=== PATIENT | female | born 1995 | race Hispanic/Latino ===

== ENCOUNTER 2018-08-09 22:30 | Emergency (ER) | payer SELFPAY ==
[2018-08-09 22:40] VITALS: BMI 24.9
[2018-08-09] MEDS ORDERED: Sodium Chloride 0.9% 1,000 ML IV STA (22:53)
[2018-08-09 23:01] VITALS: TEMP 97.9
--- NOTE | 2018-08-09 23:04 | ED PDOC ---
Arrival/HPI - General Historian: Patient - History of Present Illness Narrative History of Present Illness (Text): 08/09/18 22:57 22-year-old female presents today with anxiety and palpitations worsening over the past 4 days. Patient he denies fevers or chills. Patient denies dizziness or weakness. Patient states she's been feeling palpitations like her heart is racing. She states it's making her feel anxious.patient states she's been feeling slightly short of breath. She denies nausea vomiting diarrhea or constipation. Patient states she did just quit smoking over a week ago and she wonders if symptoms are related. She states she's had a stuffy nose for a few days denies fevers or chills. Denies any calf pain. Denies taking any control pills. Patient denies any long car ride or plane flight. No other complaints no medications have been taken at home. <Dawn Cabral - Last Filed: 08/10/18 01:31> <Dung Antonio - Last Filed: 08/10/18 02:50> - General Chief Complaint: Anxiety Time Seen by Provider: 08/09/18 22:31 Past Medical History - Provider Review Nursing Documentation Reviewed: Yes - Infectious Disease Hx of Infectious Diseases: None - Tetanus Immunization Tetanus Immunization: Unknown - Past Medical History Past Medical History: No Previous - Cardiac Hx Cardiac Disorders: No - Pulmonary Hx Respiratory Disorders: No - Neurological Hx Neurological Disorder: No - HEENT Hx HEENT Disorder: No - Renal Hx Renal Disorder: No - Endocrine/Metabolic Hx Endocrine Disorders: No - Hematological/Oncological Hx Blood Disorders: No - Integumentary Hx Dermatological Disorder: No - Musculoskeletal/Rheumatological Hx Musculoskeletal Disorders: No - Gastrointestinal Hx Gastrointestinal Disorders: No - Genitourinary/Gynecological Hx Genitourinary Disorders: No - Psychiatric Hx Psychophysiologic Disorder: Yes Hx Anxiety: Yes Hx Substance Use: No - Past Surgical History Past Surgical History: No Previous - Anesthesia Hx Anesthesia: No - Suicidal Assessment Feels Threatened In Home Enviroment: No <Dawn Cabral - Last Filed: 08/10/18 01:31> Family/Social History - Physician Review Nursing Documentation Reviewed: Yes Family/Social History: Unknown Family HX Smoking Status: Heavy Smoker > 10 Cigarettes Daily Hx Alcohol Use: No Hx Substance Use: No <Dawn Cabral - Last Filed: 08/10/18 01:31> Allergies/Home Meds <Dawn Cabral - Last Filed: 08/10/18 01:31> <Dung Antonio - Last Filed: 08/10/18 02:50> Allergies/Adverse Reactions: Allergies No Known Allergies Allergy (Verified 08/09/18 22:51) Review of Systems - Review of Systems Constitutional: absent: Fatigue, Fevers ENT: Sinus Congestion. absent: Sore Throat Respiratory: SOB. absent: Cough Cardiovascular: Chest Pain, Palpitations Gastrointestinal: absent: Abdominal Pain, Nausea, Vomiting Musculoskeletal: absent: Arthralgias, Back Pain, Neck Pain, Joint Swelling Skin: absent: Rash, Pruritis Neurological: absent: Headache, Dizziness Psychiatric: absent: Anxiety, Depression <Dawn Cabral - Last Filed: 08/10/18 01:31> Physical Exam Vital Signs Reviewed: Yes Vital Signs Temp Pulse Resp BP Pulse Ox 08/09/18 22:43 97.9 F 136 H 22 142/81 100 Temperature: Afebrile Blood Pressure: Normal Pulse: Tachycardic Respiratory Rate: Normal Appearance: Positive for: Well-Appearing, Non-Toxic, Comfortable Pain Distress: None Mental Status: Positive for: Alert and Oriented X 3 - Systems Exam Head: Present: Atraumatic Conjunctiva: Present: Normal Mouth: Present: Moist Mucous Membranes Pharnyx: Present: Normal Nose (External): Present: Atraumatic Nose (Internal): Present: Normal Inspection Neck: Present: Normal Range of Motion Respiratory/Chest: Present: Clear to Auscultation, Good Air Exchange. No: Respiratory Distress, Accessory Muscle Use Cardiovascular: Present: Tachycardic. No: Murmurs Abdomen: No: Tenderness, Rebound, Guarding Back: Present: Normal Inspection Upper Extremity: Present: Normal ROM Lower Extremity: Present: Normal ROM. No: CALF TENDERNESS Neurological: Present: GCS=15, Speech Normal Skin: Present: Warm, Dry, Normal Color. No: Rashes Psychiatric: Present: Alert, Oriented x 3 <Dawn Cabral - Last Filed: 08/10/18 01:31> Vital Signs Temp Pulse Resp BP Pulse Ox 08/09/18 22:43 97.9 F 136 H 22 142/81 100 <Dung Antonio - Last Filed: 08/10/18 02:50> Medical Decision Making ED Course and Treatment: 08/09/18 23:00 pt with chest pain ; patient tachycardic complaining of anxiety chest pain and tightness. cbc; wnl cmp; K: 3.2 trop: Wnl dimer: 386 rapid flu negative ekg; EKG shows sinus tachycardia at 131 bpm normal axis no ST elevations pt given NS IV bolus; pt feeling better. after medications; pt with elevated D-dimer; with tachycardia; will do ct of chest to r/o PE. pt reassessment; resting comfortably; still tachycardic in the 120s; 2nd liter NS iv bolus. 08/10/18 01:28 case signed out to dr. antonio pending CT results. - RAD Interpretation Radiology Orders: 08/09/18 22:53 CHEST PORTABLE [RAD] Stat - Medication Orders Current Medication Orders: Sodium Chloride (Sodium Chloride 0.9%) 1,000 mls @ 999 mls/hr IV .Q1H1M STA Stop: 08/09/18 23:53 <Dawn Cabral - Last Filed: 08/10/18 01:31> ED Course and Treatment: 08/10/18 02:17 CTA Chest: Normal enhancement of the main pulmonary artery and right and left pulmonary arteries. Normal enhancement of the bilateral peripheral pulmonary arteries. There is no demonstrated pulmonary embolism. Normal thoracic aorta and visualized great vessels. There is no demonstrated aortic dissection. Normal heart and pericardium. Normal mediastinum. Normal hilar regions. Normal visualized trachea and bronchi. The lungs are well expanded. Normal pulmonary parenchyma. Normal pleura. Normal chest wall structures. Normal osseous structures. Mild splenomegaly. IMPRESSION: No demonstrated pulmonary embolism or arterial dissection. Mild splenomegaly. Electronically signed on Aug 10, 2018 2:06:14 AM EST by: Daniel Zimmer M.D., Certified by ABR, MSK, Neuroradiology - Lab Interpretations Lab Results: Troponin I < 0.01 ng/mL 08/09/18 23:15 Total Bilirubin 0.4 mg/dL (0.2-1.3) 08/09/18 23:15 AST 33 U/L (14-36) 08/09/18 23:15 ALT 34 U/L (7-56) 08/09/18 23:15 Alkaline Phosphatase 71 U/L (38-126) 08/09/18 23:15 Total Protein 8.5 g/dL (5.8-8.3) H 08/09/18 23:15 Albumin 5.1 g/dL (3.0-4.8) H 08/09/18 23:15 Globulin 3.4 gm/dL 08/09/18 23:15 Albumin/Globulin Ratio 1.5 (1.1-1.8) 08/09/18 23:15 Urine Color Yellow (YELLOW) 08/09/18 23:15 Urine Appearance Clear (CLEAR) 08/09/18 23:15 Urine pH 6.0 (4.7-8.0) 08/09/18 23:15 Ur Specific [place] 1.025 (1.005-1.035) 08/09/18 23:15 Urine Protein Negative mg/dL (<30 mg/dL) 08/09/18 23:15 Urine Glucose (UA) Negative mg/dL (NEGATIVE) 08/09/18 23:15 Urine Ketones Negative mg/dL (NEGATIVE) 08/09/18 23:15 Urine Blood Negative (NEGATIVE) 08/09/18 23:15 Urine Nitrate Negative (NEGATIVE) 08/09/18 23:15 Urine Bilirubin Negative (NEGATIVE) 08/09/18 23:15 Urine Urobilinogen 0.2 E.U./dL (<1 E.U./dL) 08/09/18 23:15 Ur Leukocyte Esterase Negative Maci/uL (NEGATIVE) 08/09/18 23:15 - RAD Interpretation Radiology Orders: 08/09/18 22:53 CHEST PORTABLE [RAD] Stat - Medication Orders Current Medication Orders: Discontinued Medications Sodium Chloride (Sodium Chloride 0.9%) 1,000 mls @ 999 mls/hr IV .Q1H1M STA Stop: 08/09/18 23:53 <Dung Antonio - Last Filed: 08/10/18 02:50> - PA / GUM ROLLING MACHINE OPERATOR / Resident Statement COLBY has reviewed & agrees with the documentation as recorded. COLBY has examined the patient and agrees with the treatment plan. <Dung Antonio - Last Filed: 08/10/18 02:50> Disposition/Present on Arrival - Present on Arrival Any Indicators Present on Arrival: No History of DVT/PE: No History of Uncontrolled Diabetes: No Urinary Catheter: No History of Decub. Ulcer: No History Surgical Site Infection Following: None <Dawn Cabral - Last Filed: 08/10/18 01:31> - Present on Arrival Any Indicators Present on Arrival: No - Disposition Have Diagnosis and Disposition been Completed?: Yes Disposition Time: 02:48 Patient Plan: Discharge <JillianDung miles - Last Filed: 08/10/18 02:50> - Disposition Diagnosis: Anxiety Disposition: HOME/ ROUTINE Condition: GOOD Discharge Instructions (ExitCare): Anxiety, Adult (DC) Additional Instructions: Take meds as prescribed/follow up with your doctor this week Prescriptions: hydrOXYzine HCl [Atarax] 25 mg PO Q8H PRN #15 tab PRN Reason: Anxiety Referrals: FAMILY PROVIDER,NO [Primary Care Provider] - Follow up with primary [facility] [place] [Outside] - Follow up with primary [facility] [Outside] - Follow up with primary Selina Han MD [Medical Doctor] - Follow up with primary Forms: [employer] (Cymraes)
[2018-08-09 23:32] LABS: BASO # 0.01 K/mm3 (0.0-2.0); BASO % 0.1 % (0.0-3.0); EOS # 0.2 (0.0-0.7); EOS % 1.7 % (1.5-5.0); GRAN # 5.91 (1.4-6.5); GRAN % 57.3 % (50.0-68.0); HEMOGLOBIN 14.5 g/dL (12.0-16.0); LYMPH # 3.5 (1.2-3.4); LYMPH % 33.6 % (22.0-35.0); MEAN CELL VOLUME 87.9 fl (80.0-105.0); MEAN CORPUSCULAR HEMOGLOBIN 30.9 pg (25.0-35.0); MEAN CORPUSCULAR HGB CONC 35.1 g/dl (31.0-37.0); MEAN PLATELET VOLUME 10.9 fl (7.0-11.0); MONO # 0.8 (0.1-0.6); MONO % 7.3 % (1.0-6.0); RBC 4.7 10^6/uL (3.5-6.1); RED CELL DISTRIBUTION WIDTH 12.1 % (11.5-14.5); WHITE BLOOD COUNT 10.3 10^3/uL (4.5-11.0)
[2018-08-09 23:35] LABS: URINE BILIRUBIN NEGATIVE (NEGATIVE); URINE BLOOD NEGATIVE (NEGATIVE); URINE GLUCOSE (UA) NEGATIVE (NEGATIVE); URINE LEUKOCYTE ESTERASE NEGATIVE Leu/uL (NEGATIVE); URINE PROTEIN NEGATIVE mg/dL (<30 mg/dL); URINE UROBILINOGEN 0.2 E.U./dL (<1 E.U./dL)
[2018-08-09 23:37] LABS: URINE APPEARANCE CLEAR (CLEAR); URINE COLOR YELLOW (YELLOW)
[2018-08-09 23:43] LABS: ALB/GLOB RATIO 1.5 (1.1-1.8); ALBUMIN 5.1 g/dL (3.0-4.8); ALT/SGPT 34 U/L (7-56); AST/SGOT 33 U/L (14-36); BLOOD UREA NITROGEN 16 mg/dL (7-21); CALCIUM 9.8 mg/dL (8.4-10.5); GFR NON-AFRICAN AMERICAN > 60
[2018-08-09 23:55] LABS: TROPONIN I < 0.01 ng/mL
[2018-08-10] MEDS ORDERED: Iohexol 350 MG/100 ML VIAL ONE (00:54)
[2018-08-10] MEDS ORDERED: Sodium Chloride 0.9% 1,000 ML IV STA (01:24)
[2018-08-10] MEDS ORDERED: Potassium Chloride 20 mEq ER Tab PO STA (01:30)
[2018-08-10 03:05] VITALS: BP 127/72; PULSE 110; RESP 16; O2SAT 99
--- NOTE | 2018-08-10 09:31 | CT ---
Date of service: 08/10/2018 PROCEDURE: CT Chest with contrast (Pulmonary Angiogram) HISTORY: chest pain/ shortness of breath, palpitations COMPARISON: None available. TECHNIQUE: Axial computed tomography images were obtained of the chest in the pulmonary arterial phase of enhancement. Coronal and sagittal reformatted images were created and reviewed. Intravenous contrast dose: 100 cc Omnipaque 350 Mean Hounsfield value in the main pulmonary artery: 246.25 Radiation dose: Total exam DLP = 232.70 mGy-cm. This CT exam was performed using one or more of the following dose reduction techniques: Automated exposure control, adjustment of the mA and/or kV according to patient size, and/or use of iterative reconstruction technique. FINDINGS: PULMONARY ARTERIES: Unremarkable. No pulmonary embolism. AORTA: No acute findings. No thoracic aortic aneurysm. No atherosclerotic calcification or mural plaque present. LUNGS: Unremarkable. No nodule, mass or pulmonary consolidation. PLEURAL SPACES: Unremarkable. No effusion or pneumothorax. HEART: Unremarkable. No cardiomegaly. No significant pericardial effusion. LYMPH NODES: No lymphadenopathy. BONES, CHEST WALL: Unremarkable. No fracture or destructive lesion OTHER FINDINGS: Azygos fissure common normal variant Incompletely visualized enlarged spleen. IMPRESSION: Unremarkable CT pulmonary angiogram. No pulmonary embolus. Additional benign and/or incidental findings described above. Concordant results (preliminary interpretation) provided by Igea. Procedure Completed: :08. Preliminary Report: Dictated and Authenticated: 02:06. Final Interpretation: 09:27.
--- NOTE | 2018-08-10 10:20 | RAD ---
Date of service: 08/10/2018 HISTORY: palpitations COMPARISON: No prior. FINDINGS: LUNGS: No active pulmonary disease. PLEURA: No significant pleural effusion identified, no pneumothorax apparent. CARDIOVASCULAR: No atherosclerotic calcification present Normal. OSSEOUS STRUCTURES: No significant abnormalities. VISUALIZED UPPER ABDOMEN: Normal. OTHER FINDINGS: None. IMPRESSION: No active disease.
--- NOTE | 2018-08-10 22:18 | CARD ---
APPROVED REPORT Date of service: 08/09/2018 EKG Measurement Heart [id number] <Conclusion> Sinus tachycardia Nonspecific ST and T wave abnormality Abnormal ECG
== END 2018-08-10 03:05 | disposition home or self-care (01) ==
LOC: ED 22:30
DX: F41.9 Anxiety disorder, unspecified (principal); F17.210 Nicotine dependence, cigarettes, uncomplicated
CPT/HCPCS: 71045; 71275; 80053; 81003; 81025; 82550; 83615; 84484; 85025; 85378; 87804; 93005; 96360; 96361; 99284; J7030; Q9967